=== PATIENT | male | born 2000 | race Caucasian/White ===

== ENCOUNTER 2019-07-13 01:55 | Emergency (ER) | payer SELFPAY ==
[~2019-07-13] VITALS: Ht 177.8 cm; Wt 59.1 kg
[2019-07-13 02:08] VITALS: BP 140/71; PULSE 119; TEMP 98.4
== END 2019-07-13 02:49 | disposition home or self-care (01) ==
LOC: COL.ER 01:55
DX: S01.81XA Laceration without foreign body of other part of head, initial encounter (principal); Z23 Encounter for immunization; W22.8XXA Striking against or struck by other objects, initial encounter; Y92.009 Unspecified place in unspecified non-institutional (private) residence as the place of occurrence of the external cause

== ENCOUNTER 2019-11-03 15:38 | Observation (INO) | payer BC ==
[~2019-11-03] VITALS: Ht 175.3 cm; Wt 62.1 kg
[2019-11-03 16:40] LABS: BASO # 0.1 (0.0-0.2); BASO % 0.6 % (0.0-2.0); EOS # 0.1 (0.0-0.7); EOS % 1.2 % (0-4.0); GRAN # 6.3 (1.4-6.5); GRAN % 72.8 % (42.2-75.2); HEMATOCRIT 43.2 % (36.0-47.0); HEMOGLOBIN 14.6 g/dl (12.5-16.1); LYMPH # 1.3 (1.2-3.4); LYMPH % 14.5 % (20.0-51.0); MEAN CELL VOLUME 91 fl (80.0-95.0); MEAN CORPUSCULAR HEMOGLOBIN 31 pg (26.0-32.0); MEAN CORPUSCULAR HGB CONC 34 g/dl (33.0-37.0); MEAN PLATELET VOLUME 9.4 fl (7.4-10.4); MONO # 0.9 (0.1-0.6); MONO % 10.4 % (1.7-9.3); PLATELET COUNT 281 K/mm3 (130-400); RED BLOOD COUNT 4.73 M/mm3 (4.20-5.60); REDCELL DISTRIBUTION WIDTH-CV 11.8 % (11.5-14.5)
[2019-11-03 17:04] LABS: ALANINE AMINOTRANSFERASE 20 U/L (21-72); ALBUMIN 4.5 gm/dL (3.5-5.0); ALKALINE PHOSPHATASE 56 U/L (50-136); ANION GAP 8 mmol/L (7-16); AST,SGOT 29 U/L (15-37); BILIRUBIN,TOTAL 0.7 mg/dL (0.0-1.0); BLOOD UREA NITROGEN 13 mg/dL (9-20); CALCIUM 9.5 mg/dL (8.4-10.2); CARBON DIOXIDE 28 mmol/L (22-30); CHLORIDE 104 mmol/L (98-107); CREATININE, serum 0.92 (0.66-1.25); GLUCOSE 90 mg/dL (74-106); POTASSIUM 4.8 mmol/L (3.4-5.0); SODIUM 140 mmol/L (137-145); TOTAL PROTEIN 7.2 gm/dL (6.4-8.2)
[2019-11-03 17:11] LABS: ERYTHROCYTE SEDIMENTATION RATE 1 mm/hr (0-15)
[2019-11-03 17:16] LABS: TROPONIN-I < 0.012 ng/mL (0.000-0.035)
[2019-11-03 18:08] VITALS: BP 129/63; PULSE 70; TEMP 98
--- NOTE | 2019-11-03 18:52 | NUR ---
Received report from ED nurse Morenita. Pt arrived to the floor via wheelchair. No complaints of pain or shortness of breath at this time. Vital signs normal, five page assessment complete. Pt family at bedside. Pt stated his family will bring him dinner. Reported with bedside repot to ALEXANDRA Bejarano
[2019-11-03 19:02] VITALS: BP 125/70; PULSE 67; TEMP 97.8
[2019-11-03 23:26] VITALS: BP 127/64; PULSE 65; TEMP 97.4
[2019-11-04 03:33] VITALS: BP 104/59; PULSE 56; TEMP 97.5
--- NOTE | 2019-11-04 06:36 | NUR ---
PT IN BED. UP INDEPENDENTLY. NO c/o PAIN. NO DYSPNEA.
[2019-11-04 07:57] VITALS: BP 114/63; PULSE 57; TEMP 97.5
--- NOTE | 2019-11-04 09:41 | NUR ---
Patient ready for discharge. Dr. Morillo called & discharge orders obtained. We reviewed all discharge education. Activity restrictions stressed. We reviewed follow up appt & follow up chest xray. Patient deneis Sob. Stressed the importance of not vaping! Int DC. Patient given note for school. Educated patient on signs & symptoms of calling the doctor with any questions or concerns. Patient ambulated out with all belongings. He wanted to drive himself home
--- NOTE | 2019-11-04 09:48 | NUR ---
The patient discharged back home today, 11/04. The patient's RN, Antoinette, informed SAMIR that the patient would like for SAMIR to contact [facility] [employer] [facility] [employer]. SAMIR contacted [facility] [employer] [facility] [employer] and notified them of the patient's hospitalization. No additional needs at this time.
== END 2019-11-04 09:35 | disposition home or self-care (01) ==
LOC: COL.ER 15:38 → SURG 17:32
PROVIDERS: Emergency Medicine; ADMIT Surgery
DX: J93.83 Other pneumothorax (principal); F17.290 Nicotine dependence, other tobacco product, uncomplicated
CPT/HCPCS: G0378; J7030